=== PATIENT | male | born 1975 | race Hispanic/Latino ===

== ENCOUNTER 2021-12-29 00:48 | Emergency (ER) | payer OTHER ==
[2021-12-29] MEDS ORDERED: Acetaminophen 500 MG TAB ONE (03:14)
== END 2021-12-29 03:55 | disposition home or self-care (01) ==
LOC: ERS 00:48
DX: S00.01XA Abrasion of scalp, initial encounter (principal); M25.512 Pain in left shoulder; M25.521 Pain in right elbow; V43.52XA Car driver injured in collision with other type car in traffic accident, initial encounter; W22.11XA Striking against or struck by driver side automobile airbag, initial encounter
CPT/HCPCS: 99283